=== PATIENT | male | born 1960 | race Caucasian/White ===

== ENCOUNTER 2020-07-29 07:09 | Outpatient (REF) | payer BC, SELFPAY | END 2020-07-29 07:10 | disposition home or self-care (01) | LOC: HO.LAB 07:09 | PROVIDERS: PCP Internal Medicine; Visit Provider Internal Medicine | DX: Z20.828 Contact with and (suspected) exposure to other viral communicable diseases (principal) | CPT/HCPCS: C9803; U0003 ==

== ENCOUNTER 2022-02-23 06:28 | Day surgery (SDC) | payer BC, SELFPAY ==
[2022-02-16 20:20] VITALS: BMI 28.7
--- NOTE | 2022-02-22 09:26 | HO.ANESPROP2 ---
Documented by User: Pily Morin NP 02/22/22 09:26 HPI - Anesthesia Eval Consult details Narrative: 61yo M for Colonoscopy PMFSH Active Problems Active Problems: All Active Problems (Updated 02/16/22 @ 20:14 by Hilary Edouard RN) Maxillary sinusitis (Acute) Past Medical History Medical History (Updated 02/16/22 @ 20:14 by Hilary Edouard RN) GERD (gastroesophageal reflux disease) History of skin cancer Hypertension Rosacea Spondylosis of lumbar spine Surgical History Surgical History (Updated 02/16/22 @ 20:15 by Hilary Edouard RN) History of colonoscopy History of fusion of cervical spine History of left inguinal hernia repair History of repair of right rotator cuff Social History Social History Patient Tobacco Use Status: Never used Tobacco Use of substances other than those prescribed or required for medical reasons: No Are you DNR?: No Advance Directives: No Advance Directives Information Provided: Yes Recently lost weight without trying: No Nutrition Risks: No Nutritional Risk Meds Allergies Allergy/AdvReac Type Severity Reaction Status Date / Time No Known Allergies Allergy Mild NA Verified 02/17/22 12:53 Home Medications Medication Instructions Recorded Confirmed Last Taken Type terbinafine HCl 250 mg tablet 250 mg PO DAILY 02/16/22 02/16/22 Unknown History Exam Exam Date and Time: February 22, 2022 0926 Height,Weight and Vital Signs: Height 5 ft 8 in Weight 85.729 kg Assessment and Plan Assessment Anesthesia Assessment: Chart Reviewed Documented by User: Radha Gray MD 02/23/22 07:41 PMFSH Past Medical History Medical History (Updated 02/16/22 @ 20:14 by Hilary Edouard RN) GERD (gastroesophageal reflux disease) History of skin cancer Hypertension Rosacea Spondylosis of lumbar spine Family History Family history of problems with anesthesia: No Surgical History Surgical History (Updated 02/16/22 @ 20:15 by Hilary Edouard RN) History of colonoscopy History of fusion of cervical spine History of left inguinal hernia repair History of repair of right rotator cuff History of Problems with Anesthesia: No Social History Social History Patient Tobacco Use Status: Never used Tobacco Use of substances other than those prescribed or required for medical reasons: No Are you DNR?: No Advance Directives: No Advance Directives Information Provided: Yes Recently lost weight without trying: No Nutrition Risks: No Nutritional Risk Meds Allergies Allergy/AdvReac Type Severity Reaction Status Date / Time No Known Allergies Allergy Mild NA Verified 02/17/22 12:53 Home Medications Medication Instructions Recorded Confirmed Last Taken Type terbinafine HCl 250 mg tablet 250 mg PO DAILY 02/16/22 02/16/22 Unknown History Exam Height,Weight and Vital Signs: Height 5 ft 8 in Weight 85.729 kg Vital Signs Temp Pulse Resp BP Pulse Ox 02/23/22 06:34 96.4 F L 92 18 137/94 H 98 Airway Mallampati Class: II TM Dist: <=3cm Neck ROM: Limited (But good extension ) Loose/Missing/Broken Teeth: No (Permanent bridge bottom ) Heart: RRR Lungs: CTAB Assessment and Plan Assessment Anesthesia Assessment: Anesthesia Plan Discussed Final Anesthetic Review Family History of Problems with Anesthesia: No History of Problems with Anesthesia: No NPO: Yes ASA Class: II Final Preanesthetic Review: No Changes in Pt Med Stat, Meds/Allgs Chart Reviewed, Consent Obtained/Reviewed and Anes Risks/Benef Reviewed Patient Risk: Low Procedure Risk: Low Assessment/Block/Sedation in SS: Assess/Block/Sedation-SS Anesthetic Plan Anesthetic Plan: MAC: Disposition: Standard PACU
[2022-02-23 06:34] VITALS: BP 137/94; PULSE 92; RESP 18; TEMP 35.8; O2SAT 98
[2022-02-23] MEDS: Lactated Ringers 1,000 ML 100 ML IVCONT (06:52)
--- NOTE | 2022-02-23 07:17 | MHC.SHP ---
Pre-Procedural Eval Section A Date of Service: 02/23/22 Section B Chief Complaint: screening Details of Present Illness: see H&P no changes Relevant Family History (Specify if Yes): No Relevant Social History: None Present Medications: see Short Stay Collaborative assessment Medical History: No relevant PMH Allergies: Allergies Allergy/AdvReac Type Severity Reaction Status Date / Time No Known Allergies Allergy Mild NA Verified 02/17/22 12:53 Review of Systems Sugical H&P ROS: Negative: Constitution, Cardiovascular, Respiratory, Neurological, Psychiatric, Hem-Onc, Allergic/Immunologic, Gastrointestinal, Genitourinary, Musculoskeletal, Integumentary, Endocrine and Eyes/Ears/Nose/Throat Exam Surgical H&P Exam: Normal: HEENT, Normal: Heart, Normal: Lungs, Normal: Extremities, Normal: Abdomen, Normal: Skin and Normal: Neurological Plan Diagnosis/Plan: Unchanged I have reviewed the history and physical and performed a pertinent physical examination on my patient. No changes have occurred unless specified.
[2022-02-23 07:58] VITALS: BP 120/64; PULSE 78; RESP 12; TEMP 36.1; O2SAT 96
--- NOTE | 2022-02-23 08:08 | PM.OP ---
Brief Operative Note Date of Service: 02/23/22 Pre-op diagnosis: screening Post-op diagnosis: same (colon polyp) Procedure: colonoscopy Surgeon: Brody Lee Anesthesia: MAC Was an Decorating Kiln Operator used for this Procedure?: No Estimated blood loss (mL): 2 Pathology: other (polyp 20 cm) Condition: stable Disposition: PACU
[2022-02-23 08:13] VITALS: BP 106/68; PULSE 68; RESP 14; O2SAT 96
[2022-02-23 08:28] VITALS: BP 134/86; PULSE 79; RESP 16; TEMP 36.6; O2SAT 98
--- NOTE | 2022-02-23 08:33 | OP_ITS ---
SURGEON: Brody Lee MD INDICATIONS: Colon cancer screening. PREOPERATIVE DIAGNOSIS: POSTOPERATIVE DIAGNOSIS: PROCEDURE PERFORMED: Colonoscopy to the terminal ileum with biopsy. ESTIMATED BLOOD LOSS: COMPLICATIONS: ANESTHESIA: Medications, monitored anesthesia care. ASSISTANTS: SPECIMENS: DESCRIPTION OF PROCEDURE: History and physical performed. The risks and benefits of the procedure were explained to the patient. Informed consent was obtained. The patient was placed in the left lateral decubitus position. A digital rectal exam was performed and was found to be normal. The Olympus pediatric video colonoscope was introduced into the rectum and advanced to the cecum without difficulty. The cecum was identified by transillumination, palpation, and identification of the ileocecal valve. Examination was performed. The scope was removed. He tolerated the procedure well and was returned to the recovery area in stable condition. FINDINGS: The terminal ileum was normal. The visualized colonic mucosa was normal. The quality of the prep was good. A single polyp measuring less than 5 mm was identified at 20 cm, removed with a biopsy forceps. This appeared hyperplastic. No other polyps were identified. There was moderate sigmoid diverticulosis with scattered diverticulosis throughout the remainder of the colon. Retroflexed examination did show some moderate-sized internal hemorrhoids. IMPRESSION: Colon polyp. RECOMMENDATION: Follow up the biopsy results. MD RAINA Jansen/BRADLYL / [id number]
== END 2022-02-23 08:52 | disposition home or self-care (01) ==
PROVIDERS: PCP Internal Medicine; Visit Provider Internal Medicine Gastroenterology
PROC: 0DJD8ZZ Inspection of Lower Intestinal Tract, Via Natural or Artificial Opening Endoscopic (ICD-10-PCS; CPT 45378; principal; 2022-02-23 07:30)
DX: Z12.11 Encounter for screening for malignant neoplasm of colon (principal); K63.5 Polyp of colon; K57.30 Diverticulosis of large intestine without perforation or abscess without bleeding; K64.8 Other hemorrhoids; I10 Essential (primary) hypertension; L71.9 Rosacea, unspecified; Z79.899 Other long term (current) drug therapy
CPT/HCPCS: 45380; 88305